=== PATIENT | female | born 1960 | race Caucasian/White ===

== ENCOUNTER 2017-09-03 19:44 | Emergency (ER) | payer MEDICARE, MEDICAID ==
[~2017-09-03] VITALS: Ht 170.2 cm; Wt 68.0 kg
[~2017-09-03 19:44] MED LIST: ADDERALL 30 MG30 MG; ADDERALL 30 MG30 MG PO; AMOXICILLIN500 M1 PO; AUGMENTIN 500-1 EACH PO; BACTRIM DS TAB1 EACH PO; CARISOPRODOL 3350 MG PO; CEPHALEXIN 500500 M2 PO; CIPRO HC OTIC S10 ML OTIC; FLEXERIL PO; GYNODIOL0.5 MG PO; GYNODIOL1 MG; HYDROCODON-ACE1 EAC7 PO; HYDROCODONE-AP1 EAC6 PO; IBUPROFEN 600600 M1 PO; IMITREX100 MG PO; NOHOMEMEDICATIONS; NORCO 5-325 TA1 EAC1 PO; NORCO 5-325 TA1 EACH PO; NORFLEX100 MG PO; SEROQUEL 100 M100 MG; ZOFRAN4 MG PO; ZOLOFT 50 MG TA50 M1; ZOLOFT100 MG PO
[2017-09-03] MEDS ORDERED: PERCOCET 10-321 EACH PO (19:54)
[2017-09-03] MEDS ORDERED: CELEXA40 MG PO (19:55)
[2017-09-03] MEDS ORDERED: CLONAZEPAM 0.50.5 M1 PO (19:55)
[2017-09-03 20:31] VITALS: BP 147/104
== END 2017-09-03 20:32 | disposition left against medical advice (07) ==
LOC: M.ERS 19:44
DX: S01.81XA Laceration without foreign body of other part of head, initial encounter (principal); M54.2 Cervicalgia; M54.9 Dorsalgia, unspecified; G89.29 Other chronic pain; G43.909 Migraine, unspecified, not intractable, without status migrainosus; Z88.5 Allergy status to narcotic agent; Z88.6 Allergy status to analgesic agent; W01.190A Fall on same level from slipping, tripping and stumbling with subsequent striking against furniture, initial encounter; Y93.89 Activity, other specified; Y92.89 Other specified places as the place of occurrence of the external cause; Y99.8 Other external cause status

== ENCOUNTER 2017-09-13 15:45 | Emergency (ER) | payer MEDICARE, MEDICAID ==
[~2017-09-13] VITALS: Ht 167.6 cm; Wt 68.0 kg
[~2017-09-13 15:45] MED LIST changes: +CELEXA40 MG PO; +CLONAZEPAM 0.50.5 M1 PO; +PERCOCET 10-321 EACH PO
[2017-09-13] MEDS ORDERED: KEFLEX500 M1 PO (16:34)
[2017-09-13] MEDS ORDERED: BACTRIM DS TAB1 EACH PO (16:34)
[2017-09-13 16:59] VITALS: BP 134/81
== END 2017-09-13 17:00 | disposition home or self-care (01) ==
LOC: M.ERS 15:45
DX: N61.1 Abscess of the breast and nipple (principal); G89.29 Other chronic pain; M54.2 Cervicalgia; M54.5 Low back pain; G43.909 Migraine, unspecified, not intractable, without status migrainosus; Z88.5 Allergy status to narcotic agent; Z88.6 Allergy status to analgesic agent